=== PATIENT | female | born 1960 | race Two or more races ===

== ENCOUNTER 2022-08-31 12:20 | Outpatient (REF) | payer OTHER, SELFPAY ==
--- NOTE | ~2022-08-31 | MM_ITS ---
EXAMINATION: MM SCREENING DIGITAL BREAST TOMOSYNTHESIS, BILATERAL CLINICAL INFORMATION: Screening. Asymptomatic. The lifetime risk of breast cancer based on the Tyrer-Cuzick Model is 11%. COMPARISON: Outside mammography: 08/20/2021, 08/13/2020, 01/02/2019 ([place]). TECHNIQUE: Digital breast tomosynthesis is performed in both the craniocaudal and mediolateral oblique views along with computer-aided detection (CAD). Synthesized 2D images are generated from the tomosynthesis. Additional exaggerated right CC view is provided. FINDINGS: There are scattered areas of fibroglandular density (ACR BI-RADS breast composition Category b). There are no significant masses, abnormal calcifications, or other abnormalities. Parenchymal pattern is similar to prior outside exams. Minor asymmetries are stable. No developing density or architectural abnormality. The axilla are unremarkable. MM/MM tomosynthesis screening BI IMPRESSION: No mammographic evidence of malignancy. ASSESSMENT: BI-RADS 2: Benign RECOMMENDATION: Routine annual mammography screening. This patient's information was entered into a reminder system with a target due date for their next mammogram.
== END 2022-08-31 12:21 | disposition home or self-care (01) ==
LOC: HO.MAMMO 12:20
PROVIDERS: PCP Internal Medicine; Visit Provider Internal Medicine
DX: Z12.31 Encounter for screening mammogram for malignant neoplasm of breast (principal)
CPT/HCPCS: 77063; 77067

== ENCOUNTER 2022-09-03 14:37 | Outpatient (REF) | payer OTHER, SELFPAY ==
[2022-09-08 09:43] LABS: HPV mRNA E6/E7 Not Detected (Not Detected)
== END 2022-09-03 14:38 | disposition home or self-care (01) ==
LOC: HO.LNP 14:37
PROVIDERS: Visit Provider Internal Medicine
DX: Z01.419 Encounter for gynecological examination (general) (routine) without abnormal findings (principal); Z11.51 Encounter for screening for human papillomavirus (HPV)
CPT/HCPCS: 87624; 88142

== ENCOUNTER 2022-09-10 11:45 | Outpatient (REF) | payer OTHER, SELFPAY ==
[2022-09-10 13:47] LABS: MANUAL DIFF FLAG NO
[2022-09-10 13:55] LABS: Basophils Percent Auto 0.2 % (0-2); Eosinophils Absolute Auto 0.1 X10*3/uL (0.0-0.4); Eosinophils Percent Auto 1.4 % (0-4); Hematocrit 43.2 % (37.0-47.0); Hemoglobin 13.8 g/dl (12.0-16.0); Imm Gran Abs Auto 0.02 X10*3/uL (0.00-0.03); Imm Gran Pct Auto 0.2 % (0.0-0.4); Lymphocytes Absolute Auto 2.5 X10*3/uL (1.2-4.9); Lymphocytes Percent Auto 29.1 % (20-40); Mean Corpuscular HGB Conc 31.9 g/dl (31.0-35.0); Mean Corpuscular Volume 87.8 fL (80.0-98.0); Mean Platelet Volume 12.2 fL (9.4-12.3); Monocytes Absolute Auto 0.6 X10*3/uL (0.1-1.2); Monocytes Percent Auto 7.2 % (2-11); Neutrophils Absolute Auto 5.3 x10*3/uL (2.0-8.3); Neutrophils Percent Auto 61.9 % (45-73); Platelet Count 277 X10*3/uL (160-400); Red Blood Count 4.92 X10*6/uL (4.20-5.50); Red Cell Distribution Width 14.6 % (11.0-16.0); White Blood Count 8.6 X10*3/uL (4.8-10.8)
[2022-09-10 14:15] LABS: Estimated Average Glucose 117 mg/dL; Hemoglobin A1c % 5.7 %
[2022-09-10 14:30] LABS: Alanine Aminotransferase 118 U/L (0-31); Albumin Level 4.4 g/dL (3.5-5.0); Alkaline Phosphatase 62 U/L (39-117); Anion Gap 15 (12-20); Aspartate Amino Transferase 118 U/L (5-31); Bilirubin Total 0.6 mg/dL (0.0-1.0); Blood Urea Nitrogen 10 mg/dL (9-16); Calcium 9.6 mg/dL (8.4-10.2); Carbon Dioxide 24 mmol/L (22-29); Chloride 104 mmol/L (96-108); Cholesterol 258 mg/dL; Estimated Glomerular Filt Rate > 60; Glucose Fasting 97 mg/dL (60-99); HDL Cholesterol 42 mg/dL; LDL Cholesterol Calculated 182 mg/dl; Potassium 4.1 mmol/L (3.3-5.1); Sodium 139 mmol/L (135-145); Total Protein 7.2 g/dL (6.5-8.0); Triglycerides 170 mg/dL
[2022-09-10 14:47] LABS: TSH reflex Free T4 2.96 uIU/mL (0.32-4.0); Vitamin D 25-OH Total 52.7 ng/mL (>30)
== END 2022-09-10 11:46 | disposition home or self-care (01) ==
LOC: HO.HMGCLDS 11:45
PROVIDERS: PCP Internal Medicine; Visit Provider Internal Medicine
DX: E55.9 Vitamin D deficiency, unspecified (principal); I10 Essential (primary) hypertension; Z00.00 Encounter for general adult medical examination without abnormal findings
CPT/HCPCS: 36415; 80053; 80061; 82306; 83036; 84443; 85025

== ENCOUNTER 2022-09-28 08:56 | Outpatient (REF) | payer OTHER, SELFPAY ==
--- NOTE | ~2022-09-28 | US_ITS ---
EXAMINATION: US ABDOMEN COMPLETE CLINICAL INFORMATION: Other specified abnormal findings of blood chemistry. COMPARISON: None TECHNIQUE: Real-time imaging of the abdominal viscera. FINDINGS: PANCREAS: Normal. ABDOMINAL AORTA: The proximal, mid, and distal segments are normal in caliber. INFERIOR VENA CAVA: Visualized portions are normal. LIVER: The liver is normal in size. The liver contour is normal. There is increased liver echogenicity. No focal hepatic lesion. There is no intrahepatic biliary duct dilatation seen. GALLBLADDER: The gallbladder is physiologically distended. Multiple mobile gallstones are present. No evidence of gallbladder wall thickening or pericholecystic fluid. COMMON BILE DUCT: Normal in caliber measuring 0.4 cm in diameter. RIGHT KIDNEY: Normal. No hydronephrosis. No renal calculi or focal parenchymal lesions. The kidney measures 12.4 cm in maximum dimension. LEFT KIDNEY: There is an anechoic cyst lower pole measuring 2.0 x 2.2 x 1.9 cm. No hydronephrosis or renal calculi. The kidney measures 11.1 cm in maximum dimension. SPLEEN: Normal. The spleen measures 10.0 cm in maximum dimension. FREE FLUID: None. US/US abdomen complete IMPRESSION: 1. There is an anechoic cyst lower pole left kidney measuring 2.2 cm. 2. There is cholelithiasis without wall thickening. 3. Hepatic steatosis without focal lesion.
== END 2022-09-28 08:57 | disposition home or self-care (01) ==
LOC: HO.HMGCX 08:56
PROVIDERS: PCP Internal Medicine; Visit Provider Internal Medicine
DX: R79.89 Other specified abnormal findings of blood chemistry (principal); E78.5 Hyperlipidemia, unspecified
CPT/HCPCS: 76700

== ENCOUNTER 2022-10-09 10:58 | Outpatient (REF) | payer OTHER, SELFPAY ==
[2022-10-09 15:10] LABS: Alanine Aminotransferase 100 U/L (0-31); Albumin Level 4.4 g/dL (3.5-5.0); Alkaline Phosphatase 56 U/L (39-117); Aspartate Amino Transferase 102 U/L (5-31); Bilirubin Direct 0.2 mg/dL (0.0-0.5); Bilirubin Total 0.6 mg/dL (0.0-1.0); Cholesterol 271 mg/dL; HDL Cholesterol 44 mg/dL; LDL Cholesterol Calculated 206 mg/dl; Triglycerides 105 mg/dL
[2022-10-12 04:33] LABS: HBsAGNum1 0.29 S/CO (0.00-0.99); Hepatitis B Core Antibody Nonreactive (Nonreactive); Hepatitis B Surface Antigen Negative (Negative); ~HepC Num1 0.08 S/CO (0.00-0.79); ~Hepatitis B Surface Antibody NONREACTIVE (Nonreactive); ~Hepatitis C Antibody Nonreactive (Nonreactive)
[2022-10-13 22:23] LABS: Ceruloplasmin 30 mg/dL (18-53)
[2022-10-15 12:58] LABS: Liver Kidney Microsomal Ab <=20.0 U (<=20.0)
== END 2022-10-09 10:59 | disposition home or self-care (01) ==
LOC: HO.HMGCLDS 10:58
PROVIDERS: PCP Internal Medicine; Visit Provider Internal Medicine
DX: R79.89 Other specified abnormal findings of blood chemistry (principal)
CPT/HCPCS: 36415; 80061; 80076; 81256; 82390; 86376; 86704; 86706; 86803; 87340

== ENCOUNTER 2022-10-19 14:05 | Outpatient (AMB) | payer OTHER, SELFPAY ==
[2022-10-19 14:06] VITALS: BP 112/68; PULSE 73; O2SAT 100; BMI 39.6
--- NOTE | 2022-10-19 14:06 | A.OFFPC_ITS ---
Vital Signs 10/19/22 14:06 Height 5 ft 0.7 in Weight 208 lb BMI 39.6 BP 112/68 Blood Pressure Location Lt brachial Position Sitting Pulse 73 Pulse Source Pulse Oximeter Pulse Oximetry (%) 100 Oxygen Delivery Method Room Air Intake Visit Reasons: 1 month follow up/labs Intake Note: Pt is here today for 1 month follow up visit on labs. Allergies tetanus and diphtheria toxoids Allergy (Intermediate, Verified 05/17/23 10:42) cellulitis niacin Allergy (Mild, Verified 05/17/23 10:42) Face redness and swelling Ctltfdc-DGS-MbV Reductase Inhibitor Adverse Reaction (Intermediate, Verified 05/17/23 10:42) Muscle Pain Medication List - Last Reconciled 10/19/22 by Carly Combs MD cholecalciferol (vitamin D3) 25 mcg PO DAILY multivitamin 1 tab PO DAILY zinc acetate PO Tobacco use date assessed: 09/03/22 HPI 1 month follow up/labs HPI Details Pt presents for f/u hyperlipid and elevated LFT's. Patient had abdominal ultrasound consistent with fatty liver and cholelithiasis but no cholecystitis. PFSH Medical History Elevated cholesterol Hx of cervical cancer Vitamin D deficiency Surgical History H/O colonoscopy History of cryosurgery Hx of tonsillectomy Family History Father Diabetes Mother Heart attack Paternal Grandmother Breast cancer Sister Mental health disorder Brother Substance use disorder Social History Household Members Other:: , no children, retired Housing: House Patient Tobacco Use Status: Former Tobacco user Quit Date: 2015 Tobacco use type: Cigarette e-Cigarette/Vaping Use: Former Use Current occupational status: retired Cognitive needs: No Hearing needs: No Vision needs: Yes Questionnaire Thrive Questionnaire Date Thrive assessed: 09/03/22 FILIBERTO-7 AMB Questionnaire FILIBERTO-7 Date FILIBERTO - 7 assessed: 09/03/22 Source: Developed by Drs. Darwin Preston, Lucy Lobo, Hadley Barnes and colleagues, with an educational west from [employer]. Review of Systems Const All systems reviewed & are unremarkable except as noted in HPI and below Reports no additional complaints Eyes Reports no additional complaints ENT Reports no additional complaints Card Reports no additional complaints Resp Reports no additional complaints GI Reports no additional complaints Reports no additional complaints Physical exam (Primary Care) Vital Signs: Last Vital Signs Pulse 73 10/19/22 14:06 BP 112/68 10/19/22 14:06 Pulse Ox 100 10/19/22 14:06 Oxygen Delivery Method Room Air 10/19/22 14:06 BMI result Body Mass Index 39.6 Tobacco/Smoking Status: Tobacco use Status Tobacco use date assessed 09/03/22 10/19/22 14:12 Patient Tobacco Use Status Former Tobacco user 10/19/22 14:12 e-Cigarette/Vaping Use Former Use 10/19/22 14:12 Thrive Assessment: Date of Thrive Assessment Date Thrive assessed 09/03/22 10/19/22 14:12 Const General: no acute distress HENMT Head: Yes normal to inspection Face and sinus: Yes normal facial exam Mouth: Normal oral and palatal mucosa present Throat: Yes posterior oropharynx normal Eyes General: appearance normal, both eyes and all related structures Neck Neck: Yes supple Resp Effort & Inspection: normal respiratory effort Auscultation: clear to auscultation bilaterally Cardio Rhythm: regular rhythm Heart sounds: S1 normal heart sound present and S2 normal heart sound present GI Inspection: Yes normal to inspection Palpation (GI): Soft to palpation Percussion: Yes normal to percussion Assessment and Plan Assessment & Plan (1) Hyperlipemia: Comment: Patient refuses statin Code(s): E78.5 - Hyperlipidemia, unspecified Plan: Low-cholesterol diet regular physical activity weight loss discussed with the patient. She will try statins in the past and had side effects but does not remember which statins she tried. Crestor 20 mg daily will be started patient was advised to take CO Q10. Patient tolerates medication she will return in 2-3 months with a fasting labs before (2) Elevated LFTs: Comment: Negative hep C and B serology, liver ultrasound consistent with fatty liver 10/22 Code(s): R79.89 - Other specified abnormal findings of blood chemistry Plan: Low-fat diet weight loss discussed with the patient , monitor LFTs Orders: Orders Comprehensive Casey. Panel Fast 2 Months E78.5 - Hyperlipidemia, unspecified, R79.89 - Other specified abnormal findings of blood chemistry Hemoglobin A1c 2 Months E78.5 - Hyperlipidemia, unspecified, R79.89 - Other specified abnormal findings of blood chemistry Lipid Panel 2 Months E78.5 - Hyperlipidemia, unspecified, R79.89 - Other specified abnormal findings of blood chemistry Medications: New rosuvastatin (Crestor) 20 mg PO DAILY 90 tabs 1RF Coding Level of Care Code Est Pt Level 4 (76293) Diagnoses Hyperlipemia E78.5 Elevated LFTs R79.89
== END 2022-10-19 15:26 | disposition home or self-care (01) ==
LOC: HO.HMGC 14:05
PROVIDERS: PCP Internal Medicine; Visit Provider Internal Medicine
DX: E78.5 Hyperlipidemia, unspecified (principal); R79.89 Other specified abnormal findings of blood chemistry
CPT/HCPCS: 99214

== ENCOUNTER → 2022-11-23 10:31 | Outpatient (BNVA) | payer OTHER, SELFPAY | PROVIDERS: PCP Internal Medicine; Visit Provider Physician Assistant | DX: Z13.89 Encounter for screening for other disorder (principal) ==

== ENCOUNTER 2023-02-12 09:17 | Day surgery (SDC) | payer OTHER, SELFPAY ==
[2023-02-10 13:42] VITALS: BMI 32.3
[2023-02-12 09:52] VITALS: BMI 40.2
[2023-02-12 09:59] VITALS: BP 141/76; PULSE 82; RESP 16; TEMP 36.9; O2SAT 96
[2023-02-12] MEDS: Lactated Ringers 1,000 ML 100 ML IVCONT (10:28)
--- NOTE | 2023-02-12 10:50 | P.CONAN_ITS ---
[facility] Active Problems Active Problems: All Active Problems (Updated 02/10/23 @ 13:40 by Veronica Davis RN) Annual physical exam (Acute) Hammer toe (Acute) Vitamin D deficiency (Acute) Normal pelvic exam (Acute) Postmenopausal (Acute) Hx of colonoscopy (Acute) Elevated LFTs (Acute) Hyperlipemia (Acute) Encounter for screening colonoscopy (Acute) Hx of cervical cancer (Acute) Past Medical History Medical History Elevated cholesterol Hx of cervical cancer Vitamin D deficiency Family History Family History Father Diabetes Mother Heart attack Paternal Grandmother Breast cancer Sister Mental health disorder Brother Substance use disorder Surgical History Surgical History H/O colonoscopy History of cryosurgery Hx of tonsillectomy History of Problems with Anesthesia: No Social History Social History Household Members Other:: , no children, retired Housing: House Patient Tobacco Use Status: Former Tobacco user Quit Date: 2015 Tobacco use type: Cigarette Smoked in Last 30 Days: No e-Cigarette/Vaping Use: Former Use Use of substances other than those prescribed or required for medical reasons: No Are you DNR?: No Advance Directives: No Advance Directives Information Provided: Yes Current occupational status: retired Cognitive needs: No Hearing needs: No Vision needs: Yes Meds Allergies Allergy/AdvReac Type Severity Reaction Status Date / Time tetanus and diphtheria Allergy Intermediate cellulitis Verified 02/12/23 09:52 toxoids niacin Allergy Mild Face Verified 02/12/23 09:52 redness and swelling Ujfyqxy-GKY-PhX Reductase AdvReac Intermediate Muscle Pain Verified 02/12/23 09:52 Inhibitor Active Medications: Current Medications Lactated Ringer's (Lr) 1,000 mls @ 100 mls/hr IVCONT .Q10H SG Last Admin: 02/12/23 10:28 Dose: 100 mls/hr Home Medications Medication Instructions Recorded Confirmed Last Taken Type cholecalciferol (vitamin D3) 25 25 mcg PO DAILY 02/10/23 02/12/23 Unknown History mcg (1,000 unit) capsule (Vitamin D3) multivitamin 1 tab PO DAILY 02/10/23 02/12/23 Unknown History zinc acetate 25 mg (zinc) capsule 25 mg PO DAILY 02/10/23 02/12/23 Unknown History Exam Exam Date and Time: February 12, 2023 1050 Height,Weight and Vital Signs: Height 5 ft Weight 93.44 kg Last Vital Signs Temp 98.5 F 02/12/23 09:59 Pulse 82 02/12/23 09:59 Resp 16 02/12/23 09:59 BP 141/76 H 02/12/23 09:59 Pulse Ox 96 02/12/23 09:59 O2 Del Method Room Air 02/12/23 09:59 Airway Mallampati Class: IV TM Dist: >3cm Neck ROM: Full Loose/Missing/Broken Teeth: No Heart: RRR Lungs: CTA Assessment and Plan Assessment Anesthesia Assessment: Anesthesia Plan Discussed and Chart Reviewed Final Anesthetic Review History of Problems with Anesthesia: No NPO: Yes ASA Class: III Final Preanesthetic Review: Meds/Allgs Chart Reviewed, Consent Obtained/Reviewed and Anes Risks/Benef Reviewed Patient Risk: Intermediate Procedure Risk: Low Anesthetic Plan Anesthetic Plan: MAC: Disposition: Standard PACU
--- NOTE | 2023-02-12 11:19 | MHC.SHP ---
Pre-Procedural Eval Section A Date of Service: 02/12/23 Section B Chief Complaint: screening Details of Present Illness: PMH: Hx of cervical cancer Surgical History: Hx of tonsillectomy Family History: Father Diabetes Mother Heart attack Paternal Grandmother Breast cancer Sister Mental health disorder Brother Substance use disorder Present Medications: see Short Stay Collaborative assessment Allergies: Allergies Allergy/AdvReac Type Severity Reaction Status Date / Time tetanus and diphtheria Allergy Intermediate cellulitis Verified 02/12/23 09:52 toxoids niacin Allergy Mild Face Verified 02/12/23 09:52 redness and swelling Ywnankc-LFD-LvD Reductase AdvReac Intermediate Muscle Pain Verified 02/12/23 09:52 Inhibitor Review of Systems Review of Systems Comment: Ten point ROS negative Exam Exam Comment: Gen appear: No acute distress HEENT: no icterus Chest: No overt resp distress Abd: soft, nontender, nondistended Psych: Stable affect, answering questions appropriately Neuro: A/Ox3 noted to move all extremities spontaneously Ext: no peripheral edema Plan I have reviewed the history and physical and performed a pertinent physical examination on my patient. No changes have occurred unless specified. Time Spent With Patient Time: Total time managing care of this patient today ____ minutes.
--- NOTE | 2023-02-12 11:20 | P.OP_ITS ---
Operative Note Operative Note Date of Service: 02/12/23 Narrative: Procedure: Colonoscopy Indication: Screening Endoscopist: Alba Powers MD Anesthesia Provider: Dr Marianna Landa Anesthesia type: MAC Instrument: Olympus [id number]-[id number] Consent: Indication, risks vs benefits, and alternatives were discussed with the patient who gave written informed consent to proceed. EKG, pulse, pulse oximetry and blood pressure were monitored throughout the procedure. Please see anesthesia flowsheet. Procedure: The patient was brought to the procedure room and placed in the left lateral decubitus position. IV medications were administered by the anesthesia provider in attendance. A digital rectal exam was performed which was normal. A distal attachment cap was affixed to the tip of the scope and the colonoscope was then inserted through the anus and advanced through the colon to the cecum at 75 cm,and terminal ileum. Mucosa was carefully examined under high definition white light as the instrument was slowly withdrawn in a retrograde panoramic fashion. Retroflexion was performed in ascending colon and rectum. The procedure was not difficult. There were no immediate obvious complications. The quality of the prep was BBPS: 2+2+3 = adequate Withdrawal time 11 minutes. Limitations: No limitations. Findings: Mucosa: Normal to cecum and terminal ileum. Cold forceps biopsies were taken from R and L side of the colon to r/o microscopic colitis. Protruding lesions: * 1 sessile polyp of size 2 mm in descending colon. Cold forceps polypectomy was performed. The polyp was completely removed and retrieved. * Medium internal hemorrhoids without stigmata of recent bleeding. Excavated lesions: * Small diverticulosis of sigmoid colon. Impression: 1. Normal colon and terminal ileum mucosa (biopsy) 2. Total of 1 polyp removed from descending colon. 3. Diverticulosis 4. Internal hemorrhoids Recommendations: - Follow path results. - Repeat colonoscopy in 7-10 years if polyp is an adenoma.
[2023-02-12 11:25] VITALS: BP 102/60; PULSE 67; RESP 18; TEMP 36.6; O2SAT 98
[2023-02-12 11:40] VITALS: BP 114/82; PULSE 63; RESP 18; TEMP 37; O2SAT 96
== END 2023-02-12 12:20 | disposition home or self-care (01) ==
PROVIDERS: Visit Provider Internal Medicine
PROC: 0DJD8ZZ Inspection of Lower Intestinal Tract, Via Natural or Artificial Opening Endoscopic (ICD-10-PCS; CPT 45378; principal; 2023-02-12 11:00)
DX: Z12.11 Encounter for screening for malignant neoplasm of colon (principal); D12.4 Benign neoplasm of descending colon; K57.30 Diverticulosis of large intestine without perforation or abscess without bleeding; K64.8 Other hemorrhoids; R79.89 Other specified abnormal findings of blood chemistry; K58.9 Irritable bowel syndrome, unspecified; E55.9 Vitamin D deficiency, unspecified; E78.5 Hyperlipidemia, unspecified; Z87.891 Personal history of nicotine dependence; Z85.41 Personal history of malignant neoplasm of cervix uteri; Z88.8 Allergy status to other drugs, medicaments and biological substances; Z79.899 Other long term (current) drug therapy
CPT/HCPCS: 45380; 88305

== ENCOUNTER → 2023-02-12 09:17 | Outpatient (BNV) | payer OTHER, SELFPAY | PROVIDERS: Visit Provider Internal Medicine | DX: Z12.11 Encounter for screening for malignant neoplasm of colon (principal); D12.4 Benign neoplasm of descending colon; K57.30 Diverticulosis of large intestine without perforation or abscess without bleeding; K64.8 Other hemorrhoids | CPT/HCPCS: 45380 ==

== ENCOUNTER 2023-05-17 08:59 | Outpatient (AMB) | payer OTHER, SELFPAY ==
--- NOTE | 2023-05-17 10:26 | MHC.OFFWIV ---
Intake Vital Signs 05/17/23 10:29 Height 5 ft Weight 93.44 kg BMI 40.2 BP 140/72 H Blood Pressure Location Lt brachial Position Sitting Pulse 80 Pulse Source Pulse Oximeter Temp 98.0 F Temp Source Temporal Artery Scan Pulse Oximetry (%) 98 Intake Visit Reasons: EP Sore throat, Cough, Congestion ([place]) Intake Note: pt is here for c/o cough, sore throat, congestion Patient Tobacco Use Status: Former Tobacco user Quit Date: 2015 Allergies tetanus and diphtheria toxoids Allergy (Intermediate, Verified 05/17/23 10:42) cellulitis niacin Allergy (Mild, Verified 05/17/23 10:42) Face redness and swelling Kydoqej-WZT-QnA Reductase Inhibitor Adverse Reaction (Intermediate, Verified 05/17/23 10:42) Muscle Pain Do you need a note to return to daycare/school/sports/work: No HPI EP Sore throat, Cough, Congestion ([place]) HPI Details Patient presents on day 5 of sore throat which has progressed to mild productive cough and congestion. She notes chills and fever up to 100 degrees. She did COVID test at home which was negative she is unsure of sick contacts but she has been social with many people including going to a class reunion 6 days before come becoming ill. She denies chest pain, shortness of breath, GI symptoms, dizziness. She has used a nebulizer at home which was helpful with the cough. [facility] Medical History Elevated cholesterol Hx of cervical cancer Vitamin D deficiency Surgical History H/O colonoscopy History of cryosurgery Hx of tonsillectomy Family History Father Diabetes Mother Heart attack Paternal Grandmother Breast cancer Sister Mental health disorder Brother Substance use disorder Social History Household Members Other:: , no children, retired Housing: House Patient Tobacco Use Status: Former Tobacco user Quit Date: 2015 Tobacco use type: Cigarette e-Cigarette/Vaping Use: Former Use Current occupational status: retired Cognitive needs: No Hearing needs: No Vision needs: Yes Review of Systems Const Reports as per HPI and Reports no additional complaints ENT Reports no additional complaints and Reports as per HPI Card Reports as per HPI and Reports no additional complaints Resp Reports as per HPI and Reports no additional complaints GI Reports as per HPI and Reports no additional complaints Neuro Reports no additional complaints and Reports as per HPI Physical Exam Vital Signs: Last Vital Signs Temp 98.0 F 05/17/23 10:29 Pulse 80 05/17/23 10:29 BP 140/72 H 05/17/23 10:29 Pulse Ox 98 05/17/23 10:29 BMI result Body Mass Index 40.2 Const General: cooperative, comfortable and no acute distress Orientation/consciousness: patient oriented x3 HEENT Ears: hearing grossly normal bilaterally and TM's normal bilaterally General nose exam: Normal external nose present and Normal nasal mucous membranes and turbinates present Face and sinus: Yes sinuses nontender Mouth: Normal oral and palatal mucosa present Throat: Yes posterior oropharynx normal Neck Neck: Yes no lymphadenopathy Resp Effort & Inspection: normal respiratory effort Auscultation: clear to auscultation bilaterally Cardio Rate: regular rate Rhythm: regular rhythm Heart sounds: S1 normal heart sound present and S2 normal heart sound present Neuro General: patient oriented x3 Extrem General: Yes no pedal edema Results AMB Rapid Strep AMB Rapid Strep Negative Last Edit by Nghia Stern CMA on 05/17/23 10:58 Assessment & Plan Assessment & Plan (1) Viral syndrome: Code(s): B34.9 - Viral infection, unspecified Plan: Advise patient her symptoms are likely viral with no obvious need for antibiotics at this point. She should continue with nebulizer and Mucinex p.r.n.. I have sent an antibiotic and advised if she gets worse or does not improve over the next 3-5 days she could then started. ER if symptoms are severe difficulty breathing. I have also collected a viral swab today to rule out COVID/flu/RSV will report results as available. Return to clinic with any concerns. Orders: Orders SARS-CoV2/FLU/RSV Today B34.9 - Viral infection, unspecified AMB Rapid Strep Screen Today Z13.9 - Encounter for screening, unspecified Medications: New azithromycin (Zithromax Z-Brock) 2 pills day one then 1 pill per day x 4 days 250 mg PO DAILY 6 tabs 0RF 5 days albuterol sulfate 90 mcg/actuation (ProAir HFA) 1 inh inhalation Q4-6H PRN 6.7 grams 0RF shortness of breath or wheezing Coding Level of Care Code Est Pt Level 3 (34159) Diagnoses Viral syndrome B34.9
[2023-05-17 10:29] VITALS: BP 140/72; PULSE 80; TEMP 36.7; O2SAT 98; BMI 40.2
== END 2023-05-17 11:10 | disposition home or self-care (01) ==
PROVIDERS: Visit Provider Physician Assistant
DX: Z13.9 Encounter for screening, unspecified (principal); B34.9 Viral infection, unspecified
CPT/HCPCS: 87880; 99213

== ENCOUNTER 2023-05-17 13:31 | Outpatient (REF) | payer OTHER, SELFPAY ==
[2023-05-17 14:17] LABS: Influenza A PCR NEGATIVE (Negative); Influenza B PCR NEGATIVE (Negative); Resp Syncy Virus RNA Qual PCR NEGATIVE (Negative); SARS COV2 PCR INHOUSE NEGATIVE (Negative)
== END 2023-05-17 13:32 | disposition home or self-care (01) ==
LOC: HO.LNP 13:31
PROVIDERS: Visit Provider Physician Assistant
DX: Z11.52 Encounter for screening for COVID-19 (principal); Z20.822 Contact with and (suspected) exposure to COVID-19; B34.9 Viral infection, unspecified
CPT/HCPCS: 0241U

== ENCOUNTER 2023-09-02 12:09 | Outpatient (REF) | payer OTHER, SELFPAY ==
--- NOTE | ~2023-09-02 | MM_ITS ---
EXAMINATION: BONE DENSITOMETRY CLINICAL INDICATION: Asymptomatic menopausal state. COMPARISON: This is the patient's baseline examination. TECHNIQUE: Using a [employer] DXA System (software version: 13.1) manufactured by [employer], dual-energy x-ray absorptiometry was performed of the lumbar spine and left hip. The images are of good technical quality. Summary results are attached. FINDINGS: AP SPINE L1-L4: BMD 1.043 g/cm2, Z-score -0.5, T-score -1.1, osteopenia. LEFT FEMUR, NECK: BMD 0.590 g/cm2, Z-score -2.3, T-score -3.2, osteoporosis. LEFT FEMUR, TOTAL: BMD 0.772 g/cm2, Z-score -1.3, T-score -1.9, osteopenia. IDENTIFIED RISK FACTORS: Height loss. Menopause. HISTORY OF FRACTURE: None listed. MEDICATIONS: Vitamin D. MM/XR DEXA axial skeleton IMPRESSION: 1. DIAGNOSIS: Osteoporosis based on the lowest T-score value of -3.2 in the femoral neck applying World Health Organization criteria. 2. 10-YEAR FRACTURE RISK PREDICTION, FRAX: According to the guidelines, FRAX calculation should only be performed on patients in the osteopenia bone density category.?Therefore, FRAX was not performed on this patient.? 3. Treatment Recommendations: NOF guidelines recommend consideration for treatment in postmenopausal women and men age 50 and older presenting with the following: -A hip or vertebral (clinical or morphometric) fracture. -T-score less than or equal to -2.5 at the femoral neck or spine after appropriate evaluation to exclude secondary causes. -Low bone mass at the hip or spine and a 10-year fracture probability by FRAX of greater than or equal to 3% for hip fracture or greater than or equal to 20% for major osteoporotic fracture based on the [place] adapted WHO algorithm. 4. Other Recommendations: All treatment decisions require clinical judgment and consideration of individual patient factors, including patient preferences, comorbidities, previous drug use, risk factors not captured in the FRAX model (e.g. frailty, falls, vitamin D deficiency, increased bone turnover, interval significant decline in bone density) and possible under or overestimation of fracture risk by FRAX. Additional medical evaluation for secondary cause of low bone mineral density may be appropriate. FUTURE SCAN RECOMMENDATION: People with diagnosed cases of osteoporosis or at high risk for fracture should have regular bone mineral density tests. For patients eligible for Medicare, routine testing is allowed once every 2 years. The testing frequency can be increased to one year for patients who have rapidly progressing disease, those who are receiving or discontinuing medical therapy to restore bone mass, or have additional risk factors.
== END 2023-09-02 12:10 | disposition home or self-care (01) ==
LOC: HO.MAMMO 12:09
PROVIDERS: PCP Internal Medicine; Visit Provider Internal Medicine
DX: Z12.31 Encounter for screening mammogram for malignant neoplasm of breast (principal); Z13.820 Encounter for screening for osteoporosis; Z78.0 Asymptomatic menopausal state
CPT/HCPCS: 77063; 77067; 77080

== ENCOUNTER → 2023-09-02 13:00 | Outpatient (BNV) | payer OTHER, SELFPAY | PROVIDERS: PCP Internal Medicine; Visit Provider Radiology Diagnostic Radiology | DX: Z12.31 Encounter for screening mammogram for malignant neoplasm of breast (principal) | CPT/HCPCS: 77063; 77067 ==

== ENCOUNTER 2023-09-08 10:25 | Outpatient (REF) | payer OTHER, SELFPAY ==
[2023-09-08 13:21] LABS: MANUAL DIFF FLAG NO
[2023-09-08 13:29] LABS: Basophils Percent Auto 0.5 % (0-2); Eosinophils Absolute Auto 0.2 X10*3/uL (0.0-0.4); Eosinophils Percent Auto 2.4 % (0-4); Hematocrit 43.4 % (37.0-47.0); Hemoglobin 14.1 g/dl (12.0-16.0); Imm Gran Abs Auto 0.01 X10*3/uL (0.00-0.03); Imm Gran Pct Auto 0.2 % (0.0-0.4); Lymphocytes Absolute Auto 2.3 X10*3/uL (1.2-4.9); Lymphocytes Percent Auto 35.4 % (20-40); Mean Corpuscular HGB Conc 32.5 g/dl (31.0-35.0); Mean Corpuscular Hemoglobin 29.2 pg (27.0-33.0); Mean Corpuscular Volume 89.9 fL (80.0-98.0); Mean Platelet Volume 12.1 fL (9.4-12.3); Monocytes Absolute Auto 0.5 X10*3/uL (0.1-1.2); Monocytes Percent Auto 8.5 % (2-11); Neutrophils Absolute Auto 3.4 x10*3/uL (2.0-8.3); Platelet Count 252 X10*3/uL (160-400); Red Blood Count 4.83 X10*6/uL (4.20-5.50); Red Cell Distribution Width 14.4 % (11.0-16.0); White Blood Count 6.4 X10*3/uL (4.8-10.8)
[2023-09-08 13:50] LABS: Estimated Average Glucose 103 mg/dL; Hemoglobin A1c % 5.2 % (<6.0)
[2023-09-08 14:23] LABS: Alanine Aminotransferase 56 U/L (0-31); Albumin Level 4.1 g/dL (3.5-5.0); Alkaline Phosphatase 47 U/L (39-117); Anion Gap 11 (12-20); Aspartate Amino Transferase 39 U/L (5-31); Bilirubin Total 0.5 mg/dL (0.0-1.0); Blood Urea Nitrogen 10 mg/dL (9-16); Calcium 9.4 mg/dL (8.4-10.2); Carbon Dioxide 25 mmol/L (22-29); Chloride 108 mmol/L (96-108); Cholesterol 247 mg/dL (<200); Estimated Glomerular Filt Rate > 60; Glucose Fasting 101 mg/dL (60-99); HDL Cholesterol 46 mg/dL (>40); LDL Cholesterol Calculated 179 mg/dL (<100); Potassium 4.3 mmol/L (3.3-5.1); Sodium 140 mmol/L (135-145); Total Protein 7.5 g/dL (6.5-8.0); Triglycerides 113 mg/dL (<150)
[2023-09-15 11:23] LABS: ANA Pattern 2 Nuclear, Nucleolar; Anti Nuclear Antibody Pattern Nuclear, Speckled; Anti Nuclear Antibody Screen POSITIVE (NEGATIVE); Anti Nuclear Antibody Titer 1:40 titer
== END 2023-09-08 10:26 | disposition home or self-care (01) ==
LOC: HO.HMGCLDS 10:25
PROVIDERS: PCP Internal Medicine; Visit Provider Internal Medicine
DX: Z00.00 Encounter for general adult medical examination without abnormal findings (principal); R79.89 Other specified abnormal findings of blood chemistry; E78.5 Hyperlipidemia, unspecified
CPT/HCPCS: 36415; 80053; 80061; 83036; 85025; 86038; 86039

== ENCOUNTER 2023-09-13 12:50 | Outpatient (AMB) | payer OTHER, SELFPAY ==
--- NOTE | 2023-09-13 12:59 | MHC.PC.OV ---
Vital Signs 09/13/23 13:05 Height 5 ft Weight 200 lb BMI 39.1 BP 126/68 Blood Pressure Location Lt brachial Position Sitting Pulse 82 Pulse Source Pulse Oximeter Pulse Oximetry (%) 98 Oxygen Delivery Method Room Air Intake Visit Reasons: Annual PE Intake Note: Pt is here today for PE. Allergies tetanus and diphtheria toxoids Allergy (Intermediate, Verified 09/13/23 13:07) cellulitis niacin Allergy (Mild, Verified 09/13/23 13:07) Face redness and swelling Pzmqwkq-FOD-EzW Reductase Inhibitor Adverse Reaction (Intermediate, Verified 09/13/23 13:07) Muscle Pain Medication List - Last Reconciled 09/13/23 by Carly Combs MD albuterol sulfate 90 mcg/actuation (ProAir HFA) 1 inh inhalation Q4-6H PRN alendronate (Fosamax) 70 mg PO QWEEK cholecalciferol (vitamin D3) (Vitamin D3) 25 mcg PO DAILY coQ10 (ubiquinol) (Qunol Wei CoQ10) 100 mg PO DAILY multivitamin 1 tab PO .once a week zinc acetate 25 mg PO .every other day Tobacco use date assessed: 09/13/23 Fall risk assessment: No Falls in past year Last assessed Fall Risk: 09/13/23 Dental Screening Dental Screen Date: 09/13/23 Did you have a dental visit in the last 12 months?: Yes Did you have a dental problem in the last 6 months where you did not have access to dental care?: No Was dental information given to patient?: Patient has dentist HPI Annual PE HPI Details Patient presents for pe. [facility] Medical History (Updated 09/13/23 @ 15:14 by Carly Cobms MD) Vitamin D deficiency Elevated cholesterol Hx of cervical cancer Surgical History (Updated 09/13/23 @ 15:12 by Carly Combs MD) History of cryosurgery H/O colonoscopy Hx of tonsillectomy Family History Father Diabetes Mother Heart attack Paternal Grandmother Breast cancer Sister Mental health disorder Brother Substance use disorder Social History Household Members Other:: , no children, retired Housing: House Patient Tobacco Use Status: Former Tobacco user Quit Date: 2015 Tobacco use type: Cigarette e-Cigarette/Vaping Use: Former Use Current occupational status: retired Cognitive needs: No Hearing needs: No Vision needs: Yes Questionnaire PHQ-9 Over the last 2 weeks, how often have you been bothered by any of the following problems? 1. Little interest or pleasure in doing things: not at all 2. Feeling down, depressed, or hopeless: not at all 3. Trouble falling or staying asleep, or sleeping too much: not at all 4. Feeling tired or having little energy: not at all 5. Poor appetite or overeating: not at all 6. Feeling bad about yourself - or that you are a failure or have let yourself or your family down: not at all 7. Trouble concentrating on things, such as reading the newspaper or watching television: not at all 8. Moving or speaking so slowly that other people could have noticed. Or the opposite - being so fidgety or restless that you have been moving around a lot more than usual: not at all 9. Thoughts that you would be better off or of hurting yourself in some way: not at all Total score: 0 Depression Screening Interpretation: Negative Depression Screening Done: Yes Source: Developed by Drs. Darwin Preston, Lucy Lobo, Hadley Barnes and colleagues, with an educational west from [employer]. Thrive Questionnaire Date Thrive assessed: 09/13/23 I am a: Patient What is your living situation today?: I have a steady place to live Within the past 12 months, did the food you bought not last and you didn't have the money to get more?: Never true Within the past 12 months, did you worry whether your food would run out before you got money to buy more?: Never true Do you have trouble paying for medicines?: No Do you have trouble getting transportation to medical appointments?: No Do you have trouble paying your heating and electricity bill?: No Do you have trouble taking care of your child, family member or friend?: No Do you have trouble with day-to-day activities such as bathing, preparing meals, shopping, managing finances, etc.?: No Are you currently unemployed and looking for a job?: No Are you interested in more education?: No Please select the resources that you would like help with: None Currently or been in a relationship where the following occur: no concerns reported THRIVE Score: 0 AUDIT C Alcohol Use Questionnaire (AUDIT-C) 1. How often do you have a drink containing alcohol?: Monthly or less 2. How many drinks containing alcohol do you have on a typical day when you are drinking?: 1 or 2 3. How often do you have six or more drinks on one occasion?: Never Total Score: 1 FILIBERTO-7 AMB Questionnaire FILIBERTO-7 Date FILIBERTO - 7 assessed: 09/13/23 Feeling nervous, anxious, or on edge: 0 = Not at all Not being able to stop or control worryin = Not at all Worrying too much about different things: 0 = Not at all Trouble relaxin = Not at all Being so restless that it is hard to sit still: 0 = Not at all Becoming easily annoyed or irritable: 0 = Not at all Feeling afraid as if something awful might happen: 0 = Not at all Total FILIBERTO-7 score (0-4 normal; 5-9 mild; 10-14 moderate; 15-21 severe): 0 Source: Developed by Drs. Darwin Preston, Lucy Lobo, Hadley Barnes and colleagues, with an educational west from [employer]. Physical exam (Primary Care) Vital Signs: Last Vital Signs Pulse 82 09/13/23 13:05 BP 126/68 09/13/23 13:05 Pulse Ox 98 09/13/23 13:05 Oxygen Delivery Method Room Air 09/13/23 13:05 BMI result Body Mass Index 39.1 Tobacco/Smoking Status: Tobacco use Status Tobacco use date assessed 09/13/23 09/13/23 13:12 Patient Tobacco Use Status Former Tobacco user 09/13/23 13:07 Tobacco use type Cigarette 09/13/23 13:07 e-Cigarette/Vaping Use Former Use 09/13/23 13:07 PHQ-9: PHQ-9 Score PHQ-9: Total score 0 09/13/23 13:18 Depression Screening Interpretation: Negative Thrive Assessment: Date of Thrive Assessment Date Thrive assessed 09/13/23 09/13/23 13:18 Currently or been in a relationship where the following occur: no concerns reported Const General: no acute distress HENMT Head: Yes normal to inspection General nose exam: Normal external nose present Mouth: Normal oral and palatal mucosa present Eyes General: appearance normal, both eyes and all related structures Neck Neck: Yes no lymphadenopathy and Yes supple Resp Effort & Inspection: normal respiratory effort Auscultation: clear to auscultation bilaterally Cardio Rhythm: regular rhythm Heart sounds: S1 normal heart sound present and S2 normal heart sound present GI Inspection: Yes normal to inspection Palpation (GI): Soft to palpation Percussion: Yes normal to percussion Auscultation: normal bowel sounds Assessment and Plan Assessment & Plan (1) Annual physical exam: Code(s): Z00.00 - Encounter for general adult medical examination without abnormal findings Plan: Well-balanced diet regular physical activity weight loss discussed with the patient. She is up-to-date with a mammogram. (2) Hyperlipemia: Comment: Patient refuses statin Code(s): E78.5 - Hyperlipidemia, unspecified Plan: Continue low-cholesterol diet, patient will have CT coronary calcium score to evaluate for calcifications and decide if she start taking a statin (3) Normal pelvic exam: Comment: pap smear 09/24 negative, patient needs pap every 2 years because of history of cervical cancer in s Code(s): Z01.419 - Encounter for gynecological examination (general) (routine) without abnormal findings (4) Elevated LFTs: Comment: Negative hep C and B serology, liver ultrasound consistent with fatty liver 10/22 Code(s): R79.89 - Other specified abnormal findings of blood chemistry Plan: Improving with low-carbohydrate diet (5) H/O colonoscopy: Comment: 2011-@ [facility], 02/21 1 polyp 2 mm, recheck [address] Powers Code(s): Z98.890 - Other specified postprocedural states (6) Osteoporosis: Comment: DEXA 08/25 T score -3.1 femoral neck, Fosamax started Code(s): M81.0 - Age-related osteoporosis without current pathological fracture Plan: Regular weight-bearing exercises taking vitamin D3 discussed with the patient. Fosamax 70 mg weekly will be started and patient will follow-up in 2 months Orders: Orders CT Coronary Calcium Score Today Comprehensive [place]. Panel Fast 365 Days E55.9 - Vitamin D deficiency, unspecified, E78.5 - Hyperlipidemia, unspecified, Z00.00 - Encounter for general adult medical examination without abnormal findings Lipid Panel 365 Days E55.9 - Vitamin D deficiency, unspecified, E78.5 - Hyperlipidemia, unspecified, Z00.00 - Encounter for general adult medical examination without abnormal findings Complete Blood Count Auto Diff 365 Days E55.9 - Vitamin D deficiency, unspecified, E78.5 - Hyperlipidemia, unspecified, Z00.00 - Encounter for general adult medical examination without abnormal findings Vitamin D 25-OH Total 365 Days E55.9 - Vitamin D deficiency, unspecified, E78.5 - Hyperlipidemia, unspecified, Z00.00 - Encounter for general adult medical examination without abnormal findings TSH reflex Free T4 365 Days E55.9 - Vitamin D deficiency, unspecified, E78.5 - Hyperlipidemia, unspecified, Z00.00 - Encounter for general adult medical examination without abnormal findings Medications: New alendronate (Fosamax) 70 mg PO QWEEK 14 tabs 3RF Refilled albuterol sulfate 90 mcg/actuation (ProAir HFA) 1 inh inhalation Q4-6H PRN 6.7 grams 0RF shortness of breath or wheezing Coding Level of Care Code Est Pt Prev Care 40-64y(35680) Diagnoses Annual physical exam Z00.00 Hyperlipemia E78.5 Normal pelvic exam Z01.419 Elevated LFTs R79.89 H/O colonoscopy Z98.890 Osteoporosis M81.0
[2023-09-13 13:05] VITALS: BP 126/68; PULSE 82; O2SAT 98; BMI 39.1
== END 2023-09-13 14:17 | disposition home or self-care (01) ==
PROVIDERS: PCP Internal Medicine; Visit Provider Internal Medicine
DX: Z00.00 Encounter for general adult medical examination without abnormal findings (principal); E78.5 Hyperlipidemia, unspecified; Z01.419 Encounter for gynecological examination (general) (routine) without abnormal findings; R79.89 Other specified abnormal findings of blood chemistry; Z98.890 Other specified postprocedural states; M81.0 Age-related osteoporosis without current pathological fracture
CPT/HCPCS: 99396

== ENCOUNTER 2023-10-28 13:39 | Outpatient (AMB) | payer OTHER, SELFPAY ==
[2023-10-28 13:57] VITALS: BP 122/74; PULSE 84; O2SAT 97; BMI 40.2
--- NOTE | 2023-10-28 13:57 | A.OFFPC_ITS ---
Vital Signs 10/28/23 13:57 Height 5 ft Weight 206 lb BMI 40.2 BP 122/74 Blood Pressure Location Rt brachial Position Sitting Pulse 84 Pulse Source Pulse Oximeter Pulse Oximetry (%) 97 Oxygen Delivery Method Room Air Intake Visit Reasons: followup alendronate Intake Note: Pt is here today for a follow up visit. Allergies tetanus and diphtheria toxoids Allergy (Intermediate, Verified 10/28/23 13:57) cellulitis niacin Allergy (Mild, Verified 10/28/23 13:57) Face redness and swelling Kluqtsr-FEY-EhQ Reductase Inhibitor Adverse Reaction (Intermediate, Verified 10/28/23 13:57) Muscle Pain Medication List - Last Reconciled 10/28/23 by Carly Combs MD albuterol sulfate 90 mcg/actuation (ProAir HFA) 1 inh inhalation Q4-6H PRN cholecalciferol (vitamin D3) (Vitamin D3) 25 mcg PO DAILY coQ10 (ubiquinol) (Qunol Wei CoQ10) 100 mg PO DAILY multivitamin 1 tab PO .once a week zinc acetate 25 mg PO .every other day zoledronic uyzs-wwilvzhq-jdzox 5 mg/100 mL (Reclast) 1 ea IV ONCE Tobacco use date assessed: 10/28/23 HPI followup alendronate HPI Details Pt presents for f/u osteoporosis. Pt c/o GERD symptoms and bone pain and increased hair loss from Fosamax. PFSH Medical History Vitamin D deficiency Elevated cholesterol Hx of cervical cancer Surgical History History of cryosurgery H/O colonoscopy Hx of tonsillectomy Family History Father Diabetes Mother Heart attack Paternal Grandmother Breast cancer Sister Mental health disorder Brother Substance use disorder Social History Household Members Other:: , no children, retired Housing: House Patient Tobacco Use Status: Former Tobacco user Quit Date: 2015 Tobacco use type: Cigarette e-Cigarette/Vaping Use: Former Use Current occupational status: retired Cognitive needs: No Hearing needs: No Vision needs: Yes Questionnaire Thrive Questionnaire Date Thrive assessed: 09/13/23 FILIBERTO-7 AMB Questionnaire FILIBERTO-7 Date FILIBERTO - 7 assessed: 09/13/23 Source: Developed by DrsRalph Preston, Lucy Lobo, Hadley Barnes and colleagues, with an educational west from [employer]. Review of Systems Const All systems reviewed & are unremarkable except as noted in HPI and below Reports no additional complaints Eyes Reports no additional complaints ENT Reports no additional complaints Card Reports no additional complaints Resp Reports no additional complaints GI Reports no additional complaints Reports no additional complaints Physical exam (Primary Care) Vital Signs: Last Vital Signs Pulse 84 10/28/23 13:57 BP 122/74 10/28/23 13:57 Pulse Ox 97 10/28/23 13:57 Oxygen Delivery Method Room Air 10/28/23 13:57 BMI result Body Mass Index 40.2 Tobacco/Smoking Status: Tobacco use Status Tobacco use date assessed 10/28/23 10/28/23 14:02 Patient Tobacco Use Status Former Tobacco user 10/28/23 14:02 Tobacco use type Cigarette 10/28/23 14:02 e-Cigarette/Vaping Use Former Use 10/28/23 14:02 Thrive Assessment: Date of Thrive Assessment Date Thrive assessed 09/13/23 10/28/23 14:02 Const General: no acute distress HENMT Mouth: Normal oral and palatal mucosa present Eyes General: appearance normal, both eyes and all related structures Resp Effort & Inspection: normal respiratory effort Auscultation: clear to auscultation bilaterally Cardio Rhythm: regular rhythm Heart sounds: S1 normal heart sound present and S2 normal heart sound present GI Inspection: Yes normal to inspection Assessment and Plan Assessment & Plan (1) Osteoporosis: Comment: DEXA 08/25 T score -3.1 femoral neck, intolerant to Fosamax :body pains, hair loss, GERD, Reclast ordered 10/28/23 Code(s): M81.0 - Age-related osteoporosis without current pathological fracture Plan: Patient could not tolerate Fosamax, will try Reclast infusion. She was advised to start regular weight-bearing exercise and continue vitamin-D supplement (2) Hyperlipemia: Comment: Patient refuses statin Code(s): E78.5 - Hyperlipidemia, unspecified Plan: Patient is awaiting CT coronary calcium score to be ordered at [facility] Medications: New zoledronic pwtr-wfiqibir-pazud 5 mg/100 mL (Reclast) 1 ea IV ONCE 100 mL 0RF Coding Level of Care Code Est Pt Level 3 (89526) Diagnoses Osteoporosis M81.0 Hyperlipemia E78.5
== END 2023-10-28 15:10 | disposition home or self-care (01) ==
PROVIDERS: PCP Internal Medicine; Visit Provider Internal Medicine
DX: M81.0 Age-related osteoporosis without current pathological fracture (principal); E78.5 Hyperlipidemia, unspecified
CPT/HCPCS: 99213

== ENCOUNTER 2023-11-26 13:55 | Outpatient (REF) | payer OTHER, SELFPAY ==
[2023-11-26 16:49] LABS: Anion Gap 13 (12-20); Blood Urea Nitrogen 14 mg/dL (9-16); Calcium 9.5 mg/dL (8.4-10.2); Carbon Dioxide 26 mmol/L (22-29); Chloride 105 mmol/L (96-108); Estimated Glomerular Filt Rate > 60; Glucose Random 168 mg/dL (60-115); Potassium 3.4 mmol/L (3.3-5.1); Sodium 141 mmol/L (135-145)
== END 2023-11-26 13:56 | disposition home or self-care (01) ==
LOC: HO.HMGCLDS 13:55
PROVIDERS: PCP Internal Medicine; Visit Provider Internal Medicine
DX: M81.0 Age-related osteoporosis without current pathological fracture (principal)
CPT/HCPCS: 36415; 80048

== ENCOUNTER 2023-11-30 13:00 | Outpatient (RCR) | payer OTHER, SELFPAY ==
[2023-11-30 13:05] VITALS: BP 147/85; PULSE 69; RESP 20; TEMP 36.8; O2SAT 97
[2023-11-30] MEDS: 0.9 % Sodium Chloride Flush 10 ML SYRINGE 5 ML IVFLUSH (13:30)
[2023-11-30] MEDS: Zoledronic Acid/Mannitol-Water 5 MG/100 ML PGGYBK.BTL IV (13:30)
== END 2023-11-30 13:56 | disposition home or self-care (01) ==
LOC: HO.INF 13:00
PROVIDERS: Visit Provider Internal Medicine
DX: M81.0 Age-related osteoporosis without current pathological fracture (principal)
CPT/HCPCS: 96374; J3489

== ENCOUNTER 2024-01-13 10:22 | Outpatient (AMB) | payer OTHER, SELFPAY ==
--- NOTE | 2024-01-13 10:24 | AM.OFFWIN_ITS ---
Intake Vital Signs 01/13/24 10:25 Height 5 ft Weight 206 lb BMI 40.2 BP 120/70 Blood Pressure Location Lt brachial Position Sitting Pulse 93 Pulse Source Pulse Oximeter Temp 97.6 F Temp Source Temporal Artery Scan Pulse Oximetry (%) 96 Oxygen Delivery Method Room Air Intake Visit Reasons: EP ?achy, inflammation/?side affects infusion Intake Note: pt is here today for achy inflammation side affects infusion started 4 days after infusion Patient Tobacco Use Status: Former Tobacco user Allergies tetanus and diphtheria toxoids Allergy (Intermediate, Verified 01/13/24 10:31) cellulitis niacin Allergy (Mild, Verified 01/13/24 10:31) Face redness and swelling Bqsoqsi-QRQ-UlI Reductase Inhibitor Adverse Reaction (Intermediate, Verified 01/13/24 10:31) Muscle Pain Do you need a note to return to daycare/school/sports/work: No HPI HPI Comments History of Present Illness Details 63 y/o female patient who presents to [facility] in clinic with c/o right sided lower back pain x 4 weeks. Pt asking for Kidney testing, because she thinks she might have issues with them. But she does deny urinary symptoms. Pt received an infusion of Reclast IV for Osteoporosis Tx 11/30/23. She reports feeling flu-like symptoms, joint pain/swelling, and lower back pain, after infusion and believes she is getting worse. Pt does not want to continue on Reclast Infusions because believes the side effects are bad and does not want to have Kidney failure. [facility] Medical History Vitamin D deficiency Elevated cholesterol Hx of cervical cancer Surgical History History of cryosurgery H/O colonoscopy Hx of tonsillectomy Family History Father Diabetes Mother Heart attack Paternal Grandmother Breast cancer Sister Mental health disorder Brother Substance use disorder Social History Household Members Other:: , no children, retired Housing: House Patient Tobacco Use Status: Former Tobacco user Tobacco use type: Cigarette e-Cigarette/Vaping Use: Former Use Current occupational status: retired Cognitive needs: No Hearing needs: No Vision needs: Yes Review of Systems Const All systems reviewed & are unremarkable except as noted in HPI and below Physical Exam Vital Signs: Last Vital Signs Temp 97.6 F 01/13/24 10:25 Pulse 93 01/13/24 10:25 BP 120/70 01/13/24 10:25 Pulse Ox 96 01/13/24 10:25 Oxygen Delivery Method Room Air 01/13/24 10:25 BMI result Body Mass Index 40.2 Const General: comfortable and no acute distress Nutritional Appearance: obese Orientation/consciousness: patient oriented x3 General: Yes no CVA tenderness Back/Spine/Pelvis Back: no CVA tenderness and back tenderness (right lower sided back tenderness.) Thoracic/Lumbar Spine: thoraco-lumbar spasm and lumbar spinal tenderness Neuro General: patient oriented x3, gait normal and moves all extremities Extrem General: Yes normal to inspection and Yes full ROM Psych Speech and movement: Normal speech and movement present Results AMB Urinalysis, Automated UA Leukoctes 0 Nuris/uL Last Edit by Davis Torrez CMA on 01/13/24 11:02 UA Nitrite Negative Last Edit by Davis Torrez CMA on 01/13/24 11:02 UA Urobilinogen 0.2 mg/dL Last Edit by Davis Torrez CMA on 01/13/24 11:02 UA Protein 0 mg/dL Last Edit by Davis Torrez CMA on 01/13/24 11:02 UA pH 6.0 Last Edit by Davis Torrez CMA on 01/13/24 11:02 UA Blood 0 Hieu/uL Last Edit by Davis Torrez CMA on 01/13/24 11:02 UA Specific [place] 1.015 Last Edit by Davis Torrez CMA on 01/13/24 11:02 UA Ketone Last Edit by Davis Torrez CMA on 01/13/24 11:02 UA Bilirubin 0 mg/dL Last Edit by Davis Torrez CMA on 01/13/24 11:02 UA Glucose 0 mg/dL Last Edit by Davis Torrez CMA on 01/13/24 11:02 Assessment & Plan Assessment & Plan (1) Low back pain: Code(s): M54.50 - Low back pain, unspecified Qualifiers: Chronicity: chronic Back pain laterality: right Sciatica presence: without sciatica Qualified Code(s): M54.50 - Low back pain, unspecified; G89.29 - Other chronic pain Plan: - U/A to r/o Kidney/bladder infection - Acetaminophen or Naproxen for pain relief - IceHot - Low Impact exercises such as walking and swimming - Weight loss - F/U with PCP for further testing of Kidney Function, and Poss RA screening. Orders: Orders AMB Urinalysis Automated Today Z13.9 - Encounter for screening, unspecified Coding Level of Care Code Est Pt Level 3 (46116) Diagnoses Chronic right-sided low back pain without sciatica M54.50; G89.29 Chronicity: chronic Back pain laterality: right Sciatica presence: without sciatica Time Spent (min) 15
[2024-01-13 10:25] VITALS: BP 120/70; PULSE 93; TEMP 36.4; O2SAT 96; BMI 40.2
== END 2024-01-13 11:55 | disposition home or self-care (01) ==
PROVIDERS: PCP Internal Medicine; Visit Provider Nurse Practitioner Family
DX: M54.50 Low back pain, unspecified (principal); G89.29 Other chronic pain
CPT/HCPCS: 81003; 99213

== ENCOUNTER → 2024-09-07 12:30 | Outpatient (BNV) | payer OTHER, SELFPAY | PROVIDERS: PCP Internal Medicine; Visit Provider Internal Medicine | DX: Z12.31 Encounter for screening mammogram for malignant neoplasm of breast (principal) | CPT/HCPCS: 77063; 77067 ==

== ENCOUNTER 2024-09-08 14:08 | Outpatient (REF) | payer OTHER, SELFPAY ==
[2024-09-08 16:25] LABS: MANUAL DIFF FLAG NO
[2024-09-08 16:40] LABS: Basophils Percent Auto 0.5 % (0-2); Eosinophils Absolute Auto 0.2 X10*3/uL (0.0-0.4); Eosinophils Percent Auto 1.9 % (0-4); Hematocrit 42.7 % (37.0-47.0); Hemoglobin 13.8 g/dl (12.0-16.0); Imm Gran Abs Auto 0.02 X10*3/uL (0.00-0.03); Imm Gran Pct Auto 0.2 % (0.0-0.4); Lymphocytes Absolute Auto 2.7 X10*3/uL (1.2-4.9); Lymphocytes Percent Auto 31.6 % (20-40); Mean Corpuscular HGB Conc 32.3 g/dl (31.0-35.0); Mean Corpuscular Hemoglobin 28.9 pg (27.0-33.0); Mean Corpuscular Volume 89.5 fL (80.0-98.0); Mean Platelet Volume 12.1 fL (9.4-12.3); Monocytes Absolute Auto 0.7 X10*3/uL (0.1-1.2); Monocytes Percent Auto 7.7 % (2-11); Neutrophils Absolute Auto 4.9 x10*3/uL (2.0-8.3); Neutrophils Percent Auto 58.1 % (45-73); Platelet Count 243 X10*3/uL (160-400); Red Blood Count 4.77 X10*6/uL (4.20-5.50); Red Cell Distribution Width 14.5 % (11.0-16.0); White Blood Count 8.5 X10*3/uL (4.8-10.8)
[2024-09-08 16:59] LABS: Alanine Aminotransferase 55 U/L (0-31); Albumin Level 4.3 g/dL (3.5-5.0); Alkaline Phosphatase 41 U/L (39-117); Anion Gap 15 (12-20); Aspartate Amino Transferase 52 U/L (5-31); Bilirubin Total 0.6 mg/dL (0.0-1.0); Blood Urea Nitrogen 10 mg/dL (9-16); Calcium 9.5 mg/dL (8.4-10.2); Carbon Dioxide 24 mmol/L (22-29); Chloride 107 mmol/L (96-108); Cholesterol 256 mg/dL (<200); Estimated Glomerular Filt Rate > 60; Glucose Fasting 90 mg/dL (60-99); HDL Cholesterol 46 mg/dL (>40); LDL Cholesterol Calculated 190 mg/dL (<100); Potassium 3.7 mmol/L (3.3-5.1); Sodium 142 mmol/L (135-145); Total Protein 7.7 g/dL (6.5-8.0); Triglycerides 104 mg/dL (<150)
[2024-09-08 17:20] LABS: Vitamin D 25-OH Total 147.4 ng/mL (>30)
== END 2024-09-08 14:09 | disposition home or self-care (01) ==
LOC: HO.HMGCLDS 14:08
PROVIDERS: PCP Internal Medicine; Visit Provider Internal Medicine
DX: Z00.00 Encounter for general adult medical examination without abnormal findings (principal); E78.5 Hyperlipidemia, unspecified; E55.9 Vitamin D deficiency, unspecified
CPT/HCPCS: 36415; 80053; 80061; 82306; 84443; 85025

== ENCOUNTER 2024-09-15 11:29 | Outpatient (AMB) | payer OTHER, SELFPAY ==
[2024-09-15 11:43] VITALS: BP 124/80; PULSE 90; RESP 20; TEMP 36.8; O2SAT 97; BMI 40.2
--- NOTE | 2024-09-15 11:43 | A.OFFPC_ITS ---
Vital Signs 09/15/24 11:43 Height 5 ft Weight 206 lb BMI 40.2 BP 124/80 Blood Pressure Location Lt brachial Position Sitting Respiration 20 Pulse 90 Pulse Source Pulse Oximeter Temp 98.3 F Temp Source Oral Pulse Oximetry (%) 97 Oxygen Delivery Method Room Air Intake Visit Reasons: Annual PE Intake Note: Pt is here today for PE. Allergies tetanus and diphtheria toxoids Allergy (Intermediate, Verified 09/15/24 11:43) cellulitis niacin Allergy (Mild, Verified 09/15/24 11:43) Face redness and swelling mannitol [From Reclast] Adverse Reaction (Intermediate, Verified 09/15/24 12:05) Joint Pain Abypbvc-ULQ-CtB Reductase Inhibitor Adverse Reaction (Intermediate, Verified 09/15/24 11:43) Muscle Pain water for injection,sterile [From Reclast] Adverse Reaction (Intermediate, Verified 09/15/24 12:05) Joint Pain zoledronic acid [From Reclast] Adverse Reaction (Intermediate, Verified 09/15/24 12:05) Joint Pain Medication List - Last Reconciled 09/15/24 by Carly Combs MD albuterol sulfate 90 mcg/actuation (ProAir HFA) 1 inh inhalation Q4-6H PRN cholecalciferol (vitamin D3) (Vitamin D3) 25 mcg PO DAILY coQ10 (ubiquinol) (Qunol Wei CoQ10) 100 mg PO DAILY multivitamin 1 tab PO .once a week zinc acetate 25 mg PO .every other day Tobacco use date assessed: 09/15/24 Fall risk assessment: No Falls in past year Last assessed Fall Risk: 09/15/24 Dental Screening Dental Screen Date: 09/13/23 Did you have a dental visit in the last 12 months?: Yes Did you have a dental problem in the last 6 months where you did not have access to dental care?: No Was dental information given to patient?: Patient has dentist HPI Annual PE HPI Details Pt presents for PE PFSH Medical History (Updated 09/15/24 @ 12:25 by Carly Combs MD) Vitamin D deficiency Elevated cholesterol Hx of cervical cancer Surgical History History of cryosurgery H/O colonoscopy Hx of tonsillectomy Family History Father Diabetes Mother Heart attack Paternal Grandmother Breast cancer Sister Mental health disorder Brother Substance use disorder Social History Household Members Other:: , no children, retired Housing: House Patient Tobacco Use Status: Former Tobacco user Tobacco use type: Cigarette e-Cigarette/Vaping Use: Former Use service: No Current occupational status: retired Cognitive needs: No Hearing needs: No Vision needs: Yes Questionnaire PHQ-9 Over the last 2 weeks, how often have you been bothered by any of the following problems? 1. Little interest or pleasure in doing things: not at all 2. Feeling down, depressed, or hopeless: not at all 3. Trouble falling or staying asleep, or sleeping too much: not at all 4. Feeling tired or having little energy: not at all 5. Poor appetite or overeating: not at all 6. Feeling bad about yourself - or that you are a failure or have let yourself or your family down: not at all 7. Trouble concentrating on things, such as reading the newspaper or watching television: not at all 8. Moving or speaking so slowly that other people could have noticed. Or the opposite - being so fidgety or restless that you have been moving around a lot more than usual: not at all 9. Thoughts that you would be better off or of hurting yourself in some way: not at all Total score: 0 Depression Screening Interpretation: Negative Depression Screening Done: Yes 27297 - PHQ-9 Billing: Yes Source: Developed by Drs. Darwin Preston, Lucy Lobo, Hadley Barnes and colleagues, with an educational west from [employer]. Thrive Questionnaire Date Thrive assessed: 09/15/24 I am a: Patient What is your living situation today?: I have a steady place to live Within the past 12 months, did the food you bought not last and you didn't have the money to get more?: Never true Within the past 12 months, did you worry whether your food would run out before you got money to buy more?: Never true Do you have trouble paying for medicines?: No Do you have trouble getting transportation to medical appointments?: No Do you have trouble paying your heating and electricity bill?: No Do you have trouble taking care of your child, family member or friend?: No Do you have trouble with day-to-day activities such as bathing, preparing meals, shopping, managing finances, etc.?: No Are you currently unemployed and looking for a job?: No Are you interested in more education?: No Please select the resources that you would like help with: None THRIVE Score: 0 AUDIT C Alcohol Use Questionnaire (AUDIT-C) 1. How often do you have a drink containing alcohol?: Monthly or less 2. How many drinks containing alcohol do you have on a typical day when you are drinking?: 1 or 2 3. How often do you have six or more drinks on one occasion?: Never Total Score: 1 FILIBERTO-7 AMB Questionnaire FILIBERTO-7 Date FILIBERTO - 7 assessed: 09/15/24 Feeling nervous, anxious, or on edge: 0 = Not at all Not being able to stop or control worryin = Not at all Worrying too much about different things: 0 = Not at all Trouble relaxin = Not at all Being so restless that it is hard to sit still: 0 = Not at all Becoming easily annoyed or irritable: 0 = Not at all Feeling afraid as if something awful might happen: 0 = Not at all Total FILIBERTO-7 score (0-4 normal; 5-9 mild; 10-14 moderate; 15-21 severe): 0 Source: Developed by Drs. Darwin Preston, Lucy Lobo, Hadley Barnes and colleagues, with an educational west from [employer]. FILIBERTO-7 Assessment Billing FILIBERTO-7 Assessment Tool: FILIBERTO-7 Assessment 94089 Review of Systems Const All systems reviewed & are unremarkable except as noted in HPI and below Reports no additional complaints Eyes Reports no additional complaints ENT Reports no additional complaints Card Reports no additional complaints Resp Reports no additional complaints GI Reports no additional complaints Reports no additional complaints Physical exam (Primary Care) Vital Signs: Last Vital Signs Temp 98.3 F 09/15/24 11:43 Pulse 90 09/15/24 11:43 Resp 20 09/15/24 11:43 BP 124/80 09/15/24 11:43 Pulse Ox 97 09/15/24 11:43 Oxygen Delivery Method Room Air 09/15/24 11:43 BMI result Body Mass Index 40.2 Tobacco/Smoking Status: Tobacco use Status Tobacco use date assessed 09/15/24 09/15/24 11:45 Patient Tobacco Use Status Former Tobacco user 09/15/24 11:45 Tobacco use type Cigarette 09/15/24 11:45 e-Cigarette/Vaping Use Former Use 09/15/24 11:45 PHQ-9: PHQ-9 Score PHQ-9: Total score 0 09/15/24 11:54 Depression Screening Interpretation: Negative Thrive Assessment: Date of Thrive Assessment Date Thrive assessed 09/15/24 09/15/24 11:54 Const General: no acute distress HENMT Head: Yes normal to inspection Ears: hearing grossly normal bilaterally Face and sinus: Yes normal facial exam Mouth: Normal oral and palatal mucosa present Eyes General: appearance normal, both eyes and all related structures Neck Neck: Yes no lymphadenopathy and Yes supple Resp Effort & Inspection: normal respiratory effort Auscultation: clear to auscultation bilaterally Cardio Rhythm: regular rhythm Heart sounds: S1 normal heart sound present and S2 normal heart sound present GI Inspection: Yes normal to inspection Palpation (GI): Soft to palpation Percussion: Yes normal to percussion Auscultation: normal bowel sounds Speculum Exam - Cervix: normal appearance of the cervix Bimanual exam- vagina & uterus: normal bimanual exam Bimanual Exam- Adnexa, other: normal adnexae Coding Level of Care Code Est Pt Prev Care >65y(74374) Diagnoses Osteoporosis M81.0 H/O colonoscopy Z98.890 Annual physical exam Z00.00 Vitamin D deficiency E55.9 Hyperlipemia E78.5 Additional Codes FILIBERTO-7 Assessment Billing - FILIBERTO-7 Assessment Tool: FILIBERTO-7 Assessment 86585 ([id number]) PHQ-9 - 33000 - PHQ-9 Billing: Yes ([id number]) Assessment & Plan Assessment & Plan (1) Osteoporosis: Comment: DEXA 08/25 T score -3.1 femoral neck, intolerant to Fosamax :body pains, hair loss, GERD, Reclast infusion 11/23 severe knee pains for 4 months, pt declined futher tx Code(s): M81.0 - Age-related osteoporosis without current pathological fracture Category: Medical Plan: Continue vitamin-D weight-bearing exercises (2) H/O colonoscopy: Comment: 2011-@ [facility], 02/21 1 polyp 2 mm, recheck [address] Powers Code(s): Z98.890 - Other specified postprocedural states Category: Surgical Plan: Up-to-date with colonoscopy (3) Annual physical exam: Code(s): Z00.00 - Encounter for general adult medical examination without abnormal fin dings Category: Medical Plan: Well-balanced diet regular exercise weight loss discussed with the patient. Pap smear was done today. she is up-to-date with mammogram (4) Vitamin D deficiency: Code(s): E55.9 - Vitamin D deficiency, unspecified Category: Medical Plan: cont vit D (5) Hyperlipemia: Comment: Patient refuses statin, CT coronary Ca score negative 11/2023 [facility] Code(s): E78.5 - Hyperlipidemia, unspecified Category: Medical Plan: Continue low-cholesterol diet Orders: Orders Pap Smear Today Z00.00 - Encounter for general adult medical examination without abnormal findings Comprehensive [place]. Panel Fast 1 Year E55.9 - Vitamin D deficiency, unspecified, E78.5 - Hyperlipidemia, unspecified, Z00.00 - Encounter for general adult medical examination without abnormal findings Complete Blood Count Auto Diff 1 Year E55.9 - Vitamin D deficiency, unspecified, E78.5 - Hyperlipidemia, unspecified, Z00.00 - Encounter for general adult medical examination without abnormal findings Lipid Panel 1 Year E55.9 - Vitamin D deficiency, unspecified, E78.5 - Hyperlipidemia, unspecified, Z00.00 - Encounter for general adult medical examination without abnormal findings Vitamin D 25-OH Total 1 Year E55.9 - Vitamin D deficiency, unspecified, E78.5 - Hyperlipidemia, unspecified, Z00.00 - Encounter for general adult medical exa mination without abnormal findings TSH reflex Free T4 1 Year E55.9 - Vitamin D deficiency, unspecified, E78.5 - Hyperlipidemia, unspecified, Z00.00 - Encounter for general adult medical examination without abnormal findings
== END 2024-09-15 12:41 | disposition home or self-care (01) ==
PROVIDERS: PCP Internal Medicine; Visit Provider Internal Medicine
DX: M81.0 Age-related osteoporosis without current pathological fracture (principal); Z98.890 Other specified postprocedural states; Z00.00 Encounter for general adult medical examination without abnormal findings; E55.9 Vitamin D deficiency, unspecified; E78.5 Hyperlipidemia, unspecified

== ENCOUNTER 2024-09-15 11:29 | Outpatient (REF) | payer OTHER, SELFPAY ==
[2024-09-26 10:05] LABS: HPV High Risk Negative (Negative)
[2024-09-26 10:06] LABS: HPV Genotype 16 Negative (Negative); HPV Genotype 18 Negative (Negative)
== END 2024-09-15 11:30 | disposition home or self-care (01) ==
LOC: HO.LNP 11:29
PROVIDERS: PCP Internal Medicine; Visit Provider Internal Medicine
DX: Z00.00 Encounter for general adult medical examination without abnormal findings (principal); Z11.3 Encounter for screening for infections with a predominantly sexual mode of transmission; M81.0 Age-related osteoporosis without current pathological fracture; E55.9 Vitamin D deficiency, unspecified; E78.5 Hyperlipidemia, unspecified; Z98.890 Other specified postprocedural states
CPT/HCPCS: 87626; 88175; 96127